=== PATIENT | female | born 1940 | race Caucasian/White ===

== ENCOUNTER → 2020-03-28 | Day surgery (SDC) | payer MEDICARE, MEDICAID ==
[~2020-03-28] MED LIST: Dextrose 5%-0.45% NaCl 1,000 ML IV SCH; Midazolam 1 MG/ML 2 ML SDV IV ONE; Midazolam 1 MG/ML 2 ML SDV ONE; Sodium Chloride 0.9% 10 ML Syringe FLUSH PRN; fentaNYL 100 MCG/2 ML SDV IV ONE; fentaNYL 100 MCG/2 ML SDV ONE
--- NOTE | 2020-03-28 08:26 | OR ---
DATE: 03/28/2020 PROCEDURE: Total colonoscopy. INSTRUMENT USED: PCF-H190DL Olympus video colonoscope. PREMEDICATIONS: Fentanyl 100 mcg intravenous, Versed 1.5 mg intravenous, nasal O2 cannula. The procedure was done under pulse oximetry, BP recording, and personnel monitor. INDICATION: The patient with rectal bleeding. Colonoscopic examination is done for detection of any polypoid lesions and removal, endoscopic hemostasis therapy if needed. DESCRIPTION OF PROCEDURE: Initial rectal exam showed external hemorrhoids. Rigid anoscopy showed small internal hemorrhoids without bleeding from them. The colonoscope was passed with ease. Few scattered diverticula were noted in the distal left colon, the colon was found to be tortuous and redundant, examination a bit prolonged. Photographs were taken of the normal-appearing cecum, identified by lipomatous ileocecal folds and appendiceal orifice. No bleeding was noted from any of the visualized areas at the commencement of the examination. Bowel preparation was found to be adequate, Pound scale 2 in all the regions, total score 6. No stricture. No vascular ectasia. No large isolated ulcerations seen. No evidence of diffuse inflammatory bowel disease in the form of friability, contact bleeding, or ulcerations. No polyp or tumor mass identified. Probing the proximal sides of folds and flexures using adequate distention and clearing up the stool material, withdrawal of the scope was made, cecum to rectum time over 6 minutes. No bleeding was noted from any of the visualized areas at the completion of examination. IMPRESSION: 1. External and internal hemorrhoids. 2. Diverticulosis. The patient tolerated the procedure well. [facility] /[id number]
[2020-03-28 10:09] VITALS: BP 142/70; PULSE 57
== END ==
LOC: DL.ENDO 06:32
PROVIDERS: ATTEND Internal Medicine Gastroenterology
DX: K57.30 Diverticulosis of large intestine without perforation or abscess without bleeding (principal); K64.4 Residual hemorrhoidal skin tags; K64.9 Unspecified hemorrhoids; E66.09 Other obesity due to excess calories; I10 Essential (primary) hypertension; E78.5 Hyperlipidemia, unspecified; E11.9 Type 2 diabetes mellitus without complications; I25.10 Atherosclerotic heart disease of native coronary artery without angina pectoris; I48.91 Unspecified atrial fibrillation; E03.9 Hypothyroidism, unspecified; Z68.41 Body mass index [BMI] 40.0-44.9, adult; Z95.5 Presence of coronary angioplasty implant and graft; Z87.19 Personal history of other diseases of the digestive system
CPT/HCPCS: 45378; J2250; J3010; J7042

== ENCOUNTER 2020-07-05 12:18 | Emergency (ER) | payer MEDICARE, MEDICAID ==
[2020-07-05] MEDS ORDERED: Sodium Chloride 0.9% 1,000 ML IV SCH (13:00)
[2020-07-05] MEDS ORDERED: Sodium Chloride 0.9% 10 ML Syringe FLUSH PRN (13:08)
[2020-07-05] MEDS ORDERED: Furosemide 40 MG/4 ML VIAL IV ONE (13:10)
[2020-07-05] MEDS ORDERED: Dexamethasone 4 MG/ML SDV IVPUSH ONE (13:10)
[2020-07-05] MEDS ORDERED: Acetaminophen 325 MG Tab PO ONE (13:10)
[2020-07-05] MEDS ORDERED: Pantoprazole 40 MG Vial IVPUSH ONE (13:15)
[2020-07-05 13:30] LABS: CHLORIDE,CL 92 mmol/L (98-107); SODIUM,NA 133 mmol/L (136-145)
--- NOTE | 2020-07-05 13:36 | CR ---
EXAMINATION: Chest 1V Frontal SEX: Female AGE: 79 years CLINICAL HISTORY: 79-year-old obese female with dyspnea. INTERPRETATION: No acute new cardiopulmonary abnormality identified since comparison PA film, 09 December 2014. 1. Cardiac silhouette accentuated by less than optimal inspiratory effort but remains within normal limits. 2. No new pulmonary vascular congestion, cephalization of flow, alveolar edema or pleural effusion. 3. No new lung mass, hilar lymphadenopathy, or focal lobar consolidation (infiltrate/atelectasis). 4. No peripheral "groundglass" interstitial lung densities. 5. No pneumothorax or pneumomediastinum. No free subdiaphragmatic air.
--- NOTE | 2020-07-05 13:50 | EDM.PDOC ---
ED HPI GENERAL MEDICAL PROBLEM - General Chief Complaint: General Stated Complaint: AMBULANCE Time Seen by Provider: 07/05/20 13:00 Source of Information: Reports: Patient, Old Records, RN, RN Notes Reviewed History Limitations: Reports: No Limitations - History of Present Illness INITIAL COMMENTS - FREE TEXT/NARRATIVE: Pt presents to ER by [facility] intercepting with [facility] with pt c/o 1 week of progressively worsening generalized weakness, chest pressure, and black stool. Pt denies fever, cough, or COVID symptoms or exposure. Hx of CHF and GI bleeds. Denies syncope, no N/V. Onset: Gradual Duration: Week(s): (1) Location: Reports: Generalized Quality: Reports: Pressure Severity: Mild Improves with: Reports: None Worsens with: Reports: None Associated Symptoms: Reports: No Other Symptoms Generalized Pain Score (Numeric/FACES): 5 - Related Data Allergies Allergy/AdvReac Type Severity Reaction Status Date / Time broccoli Allergy Rash Verified 07/05/20 12:25 calcium Allergy Cannot Verified 07/05/20 12:25 Remember fenofibrate nanocrystallized Allergy Rash Verified 07/05/20 12:25 [From Tricor] fenofibrate,micronized Allergy Rash Verified 07/05/20 12:25 [From Tricor] pravastatin Allergy Rash Verified 07/05/20 12:25 rosuvastatin calcium Allergy Rash Verified 07/05/20 12:25 [From Crestor] simvastatin Allergy Rash Verified 07/05/20 12:25 spinach Allergy Rash Verified 07/05/20 12:25 Home Meds: Home Meds Acetaminophen [Acetaminophen Extra Strength] 500 mg PO Q6HR PRN 10/19/13 [History] Docosahexaenoic Acid [DHA] 200 mg PO DAILY 10/19/13 [History] Fosinopril [Monopril] 20 mg PO BID 10/19/13 [History] Furosemide [Lasix] 40 mg PO DAILY 10/19/13 [History] Glucosam/Chondr/Collagn/Hyalur [Glucosamine & Chondroitin Cap] 1 cap PO DAILY 10/19/13 [History] Isosorbide Mononitrate [Isosorbide Mononitrate ER] 30 mg PO DAILY 10/19/13 [History] Latanoprost [Xalatan 0.005% Ophth Soln] 0.005 drop EYEBOTH DAILY 10/19/13 [History] Levothyroxine 175 mcg PO DAILY 10/19/13 [History] Lutein/Minerals/Vit A,C & E [I-Sofi] 1 each PO DAILY 10/19/13 [History] Potassium Chloride 10 meq PO DAILY 10/19/13 [History] Vitamin E 400 unit PO DAILY 10/19/13 [History] gemfibroziL [Lopid] 600 mg PO BID 10/19/13 [History] glipiZIDE [Glucotrol XL] 10 mg PO BID 10/19/13 [History] metFORMIN [Glucophage] 500 mg PO TIDM 10/19/13 [History] Omeprazole 20 mg PO DAILY 12/16/14 [History] Insulin Detemir [Levemir Flextouch] 16 units SQ BEDTIME 03/25/20 [History] Loratadine 10 mg PO DAILY 03/25/20 [History] Magnesium Oxide 500 mg PO BID 03/25/20 [History] Past Medical History HEENT History: Reports: Glaucoma, Other (See Below) Other HEENT History: UPPER AND LOWER DENTURES Cardiovascular History: Reports: Afib, CAD, High Cholesterol, Hypertension, Other (See Below) Other Cardiovascular History: Cardioversion. VALVULAR HEART DISEASE Respiratory History: Reports: None Gastrointestinal History: Reports: GERD, GI Bleed, Hemorrhoids, Helicobacter Pylori, Other (See Below) Other Gastrointestinal History: HX OF GASTRIC EROSIONS Genitourinary History: Reports: Urinary Incontinence SNOW REMOVER History: Reports: , Spontaneous Musculoskeletal History: Reports: Arthritis, Back Pain, Chronic, Neck Pain, Chronic Neurological History: Reports: None Psychiatric History: Reports: None Endocrine/Metabolic History: Reports: Diabetes, Type II, Hypothyroidism, Obesity/BMI 30+ Hematologic History: Reports: Anemia, Blood Transfusion(s), Iron Deficiency Immunologic History: Reports: None Oncologic (Cancer) History: Reports: None Dermatologic History: Reports: None - Infectious Disease History Infectious Disease History: Reports: Chicken Pox, Helicobacter Pylori, Measles, Mumps - Past Surgical History Head Surgeries/Procedures: Reports: None HEENT Surgical History: Reports: Cataract Surgery, Eye Surgery, Oral Surgery Cardiovascular Surgical History: Reports: None Respiratory Surgical History: Reports: None GI Surgical History: Reports: Colonoscopy, EGD, Other (See Below) Other GI Surgeries/Procedures: S/P ENDOSCOPIC THERAPY FOR COLONIC DIEULAFOY LESION Female Surgical History: Reports: None Endocrine Surgical History: Reports: Other (See Below) Other Endocrine Surgeries/Procedures: 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 Neurological Surgical History: Reports: None Musculoskeletal Surgical History: Reports: None Oncologic Surgical History: Reports: None Dermatological Surgical History: Reports: None Social & Family History - Family History Family Medical History: Unobtainable - Tobacco Use Tobacco Use Status *Q: Never Tobacco User - Caffeine Use Caffeine Use: Reports: Coffee, Tea Other Caffeine Use: COFFEE REGULARLY USES BOTH CAFF & DECAF - Recreational Drug Use Recreational Drug Use: No - Living Situation & Occupation Living situation: Reports: , with Family Occupation: Retired ED ROS GENERAL - Review of Systems Review Of Systems: Comprehensive ROS is negative, except as noted in HPI. ED EXAM, GENERAL - Physical Exam Exam: See Below Exam Limited By: No Limitations General Appearance: Alert, No Apparent Distress, Other (Frail elderly female, very pale appearing) Eye Exam: Bilateral Eye: EOMI, PERRL, Other (Conjunctival pallor) Ears: Normal External Exam, Hearing Grossly Normal Nose: Normal Inspection, Normal Mucosa, No Blood Throat/Mouth: Normal Lips, Normal Oropharynx, Normal Voice, No Airway Compromise, Other (Very dry oral mucosa) Head: Atraumatic, Normocephalic Neck: Normal Inspection, Supple, Non-Tender, Full Range of Motion Respiratory/Chest: No Respiratory Distress, Lungs Clear, No Accessory Muscle Use, Chest Non-Tender, Decreased Breath Sounds Cardiovascular: Regular Rate, Rhythm, No Edema GI/Abdominal: Normal Bowel Sounds, Soft, No Organomegaly, No Distention, No Abnormal Bruit, No Mass, Tender (Mild epigastric tenderness). No: Guarding, Rigid, Rebound Back Exam: Normal Inspection Extremities: Normal Range of Motion, Non-Tender Neurological: Alert, Oriented, No Motor/Sensory Deficits Psychiatric: Depressed Mood, Flat Affect Skin Exam: Warm, Dry, Intact, Pallor. No: Ecchymosis, Jaundice, Petechiae Course - Vital Signs Last Recorded V/S: Last Vital Signs Temp 96.9 F 07/05/20 14:25 Pulse 86 07/05/20 14:25 Resp 16 07/05/20 14:25 BP 95/41 L 07/05/20 14:25 Pulse Ox 99 07/05/20 14:25 - Orders/Labs/Meds Orders: Active Orders 24 hr Category Date Time Status EKG 12 Lead [EKG Documentation Completion] [RC] STAT Care 07/05/20 12:29 Active Insert Winkler Catheter [Insert Urinary Catheter] [OM.PC] Care 07/05/20 14:45 Ordered Q24H Notify Provider [RC] PRN Care 07/05/20 13:12 Active Peripheral IV Care [RC] . DIRECTED Care 07/05/20 13:10 Active Urinary Catheter Assessment [RC] ASDIRECTED Care 07/05/20 14:31 Active Verify Patient Consent Obtain [RC] ASDIRECTED Care 07/05/20 13:11 Active CULTURE BLOOD [BC] Stat Lab 07/05/20 12:45 Results CULTURE BLOOD [BC] Stat Lab 07/05/20 13:10 Ordered CULTURE URINE [RM] Stat Lab 07/05/20 14:17 Received RED BLOOD CELLS LP [BBK] Stat Lab 07/05/20 12:45 Results TYPE AND SCREEN [BBK] Stat Lab 07/05/20 12:45 Results Pantoprazole [ProTONIX IV] 40 mg Med 07/05/20 14:15 Active Sodium Chloride 0.9% [Normal Saline] 100 ml IV .CONTINUOS Sodium Chloride 0.9% [Normal Saline] 1,000 ml Med 07/05/20 13:00 Active IV ASDIRECTED Sodium Chloride 0.9% [Saline Flush] Med 07/05/20 13:08 Active 10 ml FLUSH ASDIRECTED PRN Blood Culture x2 Reflex Set [OM.PC] Stat Oth 07/05/20 13:09 Ordered Blood Transfusion Reflex Orders [OM.PC] Routine Oth 07/05/20 13:10 Ordered Peripheral IV Insertion Adult [OM.PC] Stat Oth 07/05/20 13:09 Ordered Transfuse Red Blood Cells [COMM] Stat Oth 07/05/20 13:10 Ordered Medication Orders Sodium Chloride (Normal Saline) 1,000 mls @ 999 mls/hr IV ASDIRECTED SUNNY Last Admin: 07/05/20 13:06 Dose: 999 mls/hr Documented by: ADITHYA Pantoprazole Sodium 40 mg/ (Sodium Chloride) 100 mls @ 20 mls/hr IV .CONTINUOS SUNNY Last Admin: 07/05/20 14:30 Dose: 20 mls/hr Documented by: CLIFFORD Sodium Chloride (Saline Flush) 10 ml FLUSH ASDIRECTED PRN PRN Reason: Keep Vein Open Last Admin: 07/05/20 13:42 Dose: 10 ml Documented by: CLIFFORD Labs: Laboratory Tests 07/05/20 07/05/20 07/05/20 Range/Units 12:45 12:45 12:45 WBC 8.5 (5.0-10.0) 10^3/uL RBC 1.38 L (4.2-5.4) 10^6/uL Hgb 4.0 L* D (12.0-16.0) g/dL Hct 13.1 L* (37.0-47.0) % MCV 94.9 D (80-100) fL MCH 29.0 (27.0-34.0) pg MCHC 30.5 L (33.0-35.0) g/dL Plt Count 261 (150-450) 10^3/uL Neut % (Auto) 79.5 H (42.2-75.2) % Lymph % (Auto) 5.8 L (20.5-50.1) % Wolfe % (Auto) 13.2 H (2-8) % Eos % (Auto) 0.0 L (1.0-3.0) % Baso % (Auto) 1.5 H (0.0-1.0) % PT 13.1 H (9.0-12.0) SEC INR 1.4 H (0.9-1.2) APTT 17.2 L (22.0-34.0) SEC Sodium 133 L (136-145) mmol/L Potassium 4.0 (3.5-5.1) mmol/L Chloride 92 L (98-107) mmol/L Carbon Dioxide 20 L (21-32) mmol/L Anion Gap 25.0 H (7-13) mEq/L BUN 37 H (7-18) mg/dL Creatinine 1.30 H (0.55-1.02) mg/dL Est Cr Clr Drug Dosing TNP Estimated GFR (MDRD) 40 BUN/Creatinine Ratio 28.5 (No establ ref range) Glucose 259 H (74-99) mg/dL Lactic Acid (0.4-2.0) mmol/L Calcium 8.4 L (8.5-10.1) mg/dL Total Bilirubin 0.3 (0.2-1.0) mg/dL AST 17 (15-37) U/L ALT 17 (14-59) U/L Alkaline Phosphatase 48 (46-116) U/L Troponin I < 0.017 (0.000-0.056) ng/mL B-Natriuretic Peptide 171 H (0-100) pg/ml Total Protein 6.2 L (6.4-8.2) g/dL Albumin 3.6 (3.4-5.0) g/dL Globulin 2.6 Albumin/Globulin Ratio 1.4 Amylase 98 (25-115) U/L Lipase 828 H (73-393) U/L Urine Color (YELLOW) Urine Appearance (CLEAR) Urine pH (5.0-9.0) Ur Specific [place] (1.005-1.030) Urine Protein (NEGATIVE) Urine Glucose (UA) (NEGATIVE) Urine Ketones (NEGATIVE) Urine Occult Blood (NEGATIVE) Urine Nitrite (NEGATIVE) Urine Bilirubin (NEGATIVE) Urine Urobilinogen (0.2-1.0) mg/dL Ur Leukocyte Esterase (NEGATIVE) Urine RBC /HPF Urine WBC (0-5/HPF) /HPF Ur Epithelial Cells (NOT SEEN) /HPF Amorphous Sediment (NOT SEEN) /HPF Urine Bacteria (0-FEW/HPF) /HPF Urine Mucus (NOT SEEN) /LPF Blood Type Gel Antibody Screen Crossmatch 07/05/20 07/05/20 07/05/20 Range/Units 12:45 12:45 14:17 WBC (5.0-10.0) 10^3/uL RBC (4.2-5.4) 10^6/uL Hgb (12.0-16.0) g/dL Hct (37.0-47.0) % MCV (80-100) fL MCH (27.0-34.0) pg MCHC (33.0-35.0) g/dL Plt Count (150-450) 10^3/uL Neut % (Auto) (42.2-75.2) % Lymph % (Auto) (20.5-50.1) % Wolfe % (Auto) (2-8) % Eos % (Auto) (1.0-3.0) % Baso % (Auto) (0.0-1.0) % PT (9.0-12.0) SEC INR (0.9-1.2) APTT (22.0-34.0) SEC Sodium (136-145) mmol/L Potassium (3.5-5.1) mmol/L Chloride (98-107) mmol/L Carbon Dioxide (21-32) mmol/L Anion Gap (7-13) mEq/L BUN (7-18) mg/dL Creatinine (0.55-1.02) mg/dL Est Cr Clr Drug Dosing Estimated GFR (MDRD) BUN/Creatinine Ratio (No establ ref range) Glucose (74-99) mg/dL Lactic Acid 9.1 H* (0.4-2.0) mmol/L Calcium (8.5-10.1) mg/dL Total Bilirubin (0.2-1.0) mg/dL AST (15-37) U/L ALT (14-59) U/L Alkaline Phosphatase (46-116) U/L Troponin I (0.000-0.056) ng/mL B-Natriuretic Peptide (0-100) pg/ml Total Protein (6.4-8.2) g/dL Albumin (3.4-5.0) g/dL Globulin Albumin/Globulin Ratio Amylase (25-115) U/L Lipase (73-393) U/L Urine Color Yellow (YELLOW) Urine Appearance Slightly cloudy (CLEAR) Urine pH 5.5 (5.0-9.0) Ur Specific [place] 1.020 (1.005-1.030) Urine Protein Negative (NEGATIVE) Urine Glucose (UA) Negative (NEGATIVE) Urine Ketones Negative (NEGATIVE) Urine Occult Blood Negative (NEGATIVE) Urine Nitrite Positive H (NEGATIVE) Urine Bilirubin Negative (NEGATIVE) Urine Urobilinogen 0.2 (0.2-1.0) mg/dL Ur Leukocyte Esterase Negative (NEGATIVE) Urine RBC 0-5 /HPF Urine WBC 0-5 (0-5/HPF) /HPF Ur Epithelial Cells Rare (NOT SEEN) /HPF Amorphous Sediment Rare (NOT SEEN) /HPF Urine Bacteria Many H (0-FEW/HPF) /HPF Urine Mucus Few H (NOT SEEN) /LPF Blood Type O POSITIVE Gel Antibody Screen Negative Crossmatch See Detail Meds: Medications Generic Name Dose Route Start Last Admin Trade Name Freq PRN Reason Stop Dose Admin Sodium Chloride 1,000 mls @ 999 mls/hr 07/05/20 13:00 07/05/20 13:06 Normal Saline IV 999 mls/hr ASDIRECTED SUNNY Administration Pantoprazole Sodium 40 mg/ 100 mls @ 20 mls/hr 07/05/20 14:15 07/05/20 14:30 Sodium Chloride IV 20 mls/hr .CONTINUOS SUNNY Administration Sodium Chloride 10 ml 07/05/20 13:08 07/05/20 13:42 Saline Flush FLUSH 10 ml ASDIRECTED PRN Administration Keep Vein Open Discontinued Medications Generic Name Dose Route Start Last Admin Trade Name Freq PRN Reason Stop Dose Admin Acetaminophen 650 mg 07/05/20 13:10 07/05/20 13:41 Tylenol PO 07/05/20 13:11 650 mg NOW ONE Administration Dexamethasone 4 mg 07/05/20 13:10 07/05/20 13:42 Decadron IVPUSH 07/05/20 13:11 4 mg ONETIME ONE Administration Furosemide 40 mg 07/05/20 13:10 07/05/20 13:41 Lasix IV 07/05/20 13:11 40 mg NOW ONE Administration Furosemide 20 mg 07/05/20 13:58 Lasix IVPUSH 07/05/20 13:59 NOW ONE Pantoprazole Sodium 80 mg 07/05/20 13:15 07/05/20 13:41 Protonix Iv IVPUSH 07/05/20 13:16 80 mg .BOLUS ONE Administration - Radiology Interpretation Free Text/Narrative:: CXR: no acute changes compared to prior studies per Rad. report. Departure - Departure Time of Disposition: 15:01 Disposition: DC/Tfer to Acute Hospital 02 Condition: Critical Clinical Impression: Upper GI bleed Anemia Qualifiers: Anemia type: other cause Other causes of anemia: acute posthemorrhagic Qualified Code(s): D62 - Acute posthemorrhagic anemia - Discharge Information *PRESCRIPTION DRUG MONITORING PROGRAM REVIEWED*: Not Applicable *COPY OF PRESCRIPTION DRUG MONITORING REPORT IN PATIENT ROBERT: Not Applicable Forms: ED Department Discharge, Interfacility Transfer EMTALA Sepsis Event Note (ED) - Evaluation Sepsis Screening Result: No Definite Risk - Focused Exam Vital Signs: Vital Signs Temp Temp Pulse Resp BP BP Pulse Ox 07/05/20 14:25 96.9 F 86 16 95/41 L 99 07/05/20 14:10 96.8 F L 71 16 98/49 L 100 07/05/20 14:01 96.7 F L 87 14 93/48 L 100 07/05/20 13:52 97.3 F 92 17 150/127 H 97 - My Orders Last 24 Hours: My Active Orders 07/05/20 12:29 EKG 12 Lead [EKG Documentation Completion] [RC] STAT 07/05/20 12:45 CULTURE BLOOD [BC] Stat RED BLOOD CELLS LP [BBK] Stat TYPE AND SCREEN [BBK] Stat 07/05/20 13:00 Sodium Chloride 0.9% [Normal Saline] 1,000 ml IV ASDIRECTED 07/05/20 13:08 Sodium Chloride 0.9% [Saline Flush] 10 ml FLUSH ASDIRECTED PRN 07/05/20 13:09 Blood Culture x2 Reflex Set [OM.PC] Stat Peripheral IV Insertion Adult [OM.PC] Stat 07/05/20 13:10 Peripheral IV Care [RC] . DIRECTED CULTURE BLOOD [BC] Stat Blood Transfusion Reflex Orders [OM.PC] Routine Transfuse Red Blood Cells [COMM] Stat 07/05/20 13:11 Verify Patient Consent Obtain [RC] ASDIRECTED 07/05/20 13:12 Notify Provider [RC] PRN 07/05/20 14:15 Pantoprazole [ProTONIX IV] 40 mg Sodium Chloride 0.9% [Normal Saline] 100 ml IV .CONTINUOS 07/05/20 14:17 CULTURE URINE [RM] Stat 07/05/20 14:31 Urinary Catheter Assessment [RC] ASDIRECTED 07/05/20 14:45 Insert Winkler Catheter [Insert Urinary Catheter] [OM.PC] Q24H - Assessment/Plan Last 24 Hours: My Active Orders 07/05/20 12:29 EKG 12 Lead [EKG Documentation Completion] [RC] STAT 07/05/20 12:45 CULTURE BLOOD [BC] Stat RED BLOOD CELLS LP [BBK] Stat TYPE AND SCREEN [BBK] Stat 07/05/20 13:00 Sodium Chloride 0.9% [Normal Saline] 1,000 ml IV ASDIRECTED 07/05/20 13:08 Sodium Chloride 0.9% [Saline Flush] 10 ml FLUSH ASDIRECTED PRN 07/05/20 13:09 Blood Culture x2 Reflex Set [OM.PC] Stat Peripheral IV Insertion Adult [OM.PC] Stat 07/05/20 13:10 Peripheral IV Care [RC] . DIRECTED CULTURE BLOOD [BC] Stat Blood Transfusion Reflex Orders [OM.PC] Routine Transfuse Red Blood Cells [COMM] Stat 07/05/20 13:11 Verify Patient Consent Obtain [RC] ASDIRECTED 07/05/20 13:12 Notify Provider [RC] PRN 07/05/20 14:15 Pantoprazole [ProTONIX IV] 40 mg Sodium Chloride 0.9% [Normal Saline] 100 ml IV .CONTINUOS 07/05/20 14:17 CULTURE URINE [RM] Stat 07/05/20 14:31 Urinary Catheter Assessment [RC] ASDIRECTED 07/05/20 14:45 Insert Winkler Catheter [Insert Urinary Catheter] [OM.PC] Q24H
[2020-07-05 13:54] LABS: PTT,PARTIAL THROMBOPLSTIN TIME 17.2 SEC (22.0-34.0)
[2020-07-05] MEDS ORDERED: Furosemide 40 MG/4 ML VIAL IVPUSH ONE (13:58)
[2020-07-05] MEDS ORDERED: Pantoprazole 40 MG in Sodium Chloride 0.9% 100 ML IV SCH (14:15)
[2020-07-05 15:39] VITALS: BP 99/51; PULSE 78
== END 2020-07-05 15:50 ==
LOC: DL.ED 12:18
DX: K92.2 Gastrointestinal hemorrhage, unspecified (principal); D62 Acute posthemorrhagic anemia; R23.1 Pallor; I48.91 Unspecified atrial fibrillation; I25.10 Atherosclerotic heart disease of native coronary artery without angina pectoris; I10 Essential (primary) hypertension; E11.9 Type 2 diabetes mellitus without complications; E03.9 Hypothyroidism, unspecified; E66.9 Obesity, unspecified; Z68.41 Body mass index [BMI] 40.0-44.9, adult; Z91.018 Allergy to other foods; Z88.8 Allergy status to other drugs, medicaments and biological substances; Z79.4 Long term (current) use of insulin; Z79.899 Other long term (current) drug therapy
CPT/HCPCS: 36415; 36430; 51702; 71045; 80053; 81001; 82150; 82272; 83605; 83690; 83880; 84484; 85025; 85610; 85730; 86850; 86900; 86901; 86920; 86922; 87040; 87086; 87088; 87186; 93005; 96365; 96375; 96376; 99284; 99285-25; A9270-GY; C9113; J1100; J1940; J7030; P9016

== ENCOUNTER 2021-01-07 15:13 | Emergency (ER) | payer MEDICARE, MEDICAID ==
[2021-01-07 15:51] VITALS: BP 114/52; PULSE 81
--- NOTE | 2021-01-07 17:40 | EDM.PDOC ---
ED HPI GENERAL MEDICAL PROBLEM - General Chief Complaint: General Stated Complaint: COUPLE OF SHORT SEIZURES Time Seen by Provider: 01/07/21 17:00 Source of Information: Reports: Patient, Family (Daughter), RN, RN Notes Reviewed History Limitations: Reports: No Limitations - History of Present Illness INITIAL COMMENTS - FREE TEXT/NARRATIVE: Aneta is an 80 y/o female who presents to the ED via personal vehicle with complaints of syncopal events. The patient reports she was at a local park for several hours in the sun with her family today when she experienced two episodes of pre-syncope. She notes she was sitting at the picnic table eating during these events and did not completely lose consciousness. Her field of vision became dark, but she was still able to talk; she remembers both events in entirety. She denies recent illness, fever, shaking chills, dizziness, current vision changes, chest pain, palpitations, shortness of breath, abdominal pain, nausea, vomiting, dysuria, hematuria, constipation, or diarrhea. She has had no falls or recent trauma. She has taken all of her medications, per normal routine. - Related Data Allergies Allergy/AdvReac Type Severity Reaction Status Date / Time broccoli Allergy Rash Verified 01/07/21 15:33 calcium Allergy Cannot Verified 01/07/21 15:33 Remember fenofibrate nanocrystallized Allergy Rash Verified 01/07/21 15:33 [From Tricor] fenofibrate,micronized Allergy Rash Verified 01/07/21 15:33 [From Tricor] Penicillins Allergy Airway Verified 01/07/21 15:34 Tightness pravastatin Allergy Rash Verified 01/07/21 15:33 rosuvastatin calcium Allergy Rash Verified 01/07/21 15:33 [From Crestor] simvastatin Allergy Rash Verified 01/07/21 15:33 spinach Allergy Rash Verified 01/07/21 15:33 Home Meds: Home Meds Acetaminophen [Acetaminophen Extra Strength] 500 mg PO Q6HR PRN 10/19/13 [Histor y] Docosahexaenoic Acid [DHA] 200 mg PO DAILY 10/19/13 [History] Fosinopril [Monopril] 20 mg PO BID 10/19/13 [History] Furosemide [Lasix] 40 mg PO DAILY 10/19/13 [History] Glucosam/Chondr/Collagn/Hyalur [Glucosamine & Chondroitin Cap] 1 cap PO DAILY 10/19/13 [History] Isosorbide Mononitrate [Isosorbide Mononitrate ER] 30 mg PO DAILY 10/19/13 [History] Latanoprost [Xalatan 0.005% Ophth Soln] 0.005 drop EYEBOTH DAILY 10/19/13 [History] Levothyroxine 175 mcg PO DAILY 10/19/13 [History] Lutein/Minerals/Vit A,C & E [I-Sofi] 1 each PO DAILY 10/19/13 [History] Potassium Chloride 10 meq PO DAILY 10/19/13 [History] Vitamin E 400 unit PO DAILY 10/19/13 [History] gemfibroziL [Lopid] 600 mg PO BID 10/19/13 [History] glipiZIDE [Glucotrol XL] 10 mg PO BID 10/19/13 [History] metFORMIN [Glucophage] 500 mg PO TIDM 10/19/13 [History] Omeprazole 20 mg PO DAILY 12/16/14 [History] Insulin Detemir [Levemir Flextouch] 16 units SQ BEDTIME 03/25/20 [History] Loratadine 10 mg PO DAILY 03/25/20 [History] Magnesium Oxide 500 mg PO BID 03/25/20 [History] Past Medical History HEENT History: Reports: Glaucoma, Other (See Below) Other HEENT History: UPPER AND LOWER DENTURES Cardiovascular History: Reports: Afib, CAD, High Cholesterol, Hypertension, Other (See Below) Other Cardiovascular History: Cardioversion. VALVULAR HEART DISEASE Respiratory History: Reports: None Gastrointestinal History: Reports: GERD, GI Bleed, Hemorrhoids, Helicobacter Pylori, Other (See Below) Other Gastrointestinal History: HX OF GASTRIC EROSIONS Genitourinary History: Reports: Urinary Incontinence CERTIFIED MEDICAL ASST History: Reports: , Spontaneous Musculoskeletal History: Reports: Arthritis, Back Pain, Chronic, Neck Pain, Chronic Neurological History: Reports: None Psychiatric History: Reports: None Endocrine/Metabolic History: Reports: Diabetes, Type II, Hypothyroidism, Obe sity/BMI 30+ Hematologic History: Reports: Anemia, Blood Transfusion(s), Iron Deficiency Immunologic History: Reports: None Oncologic (Cancer) History: Reports: None Dermatologic History: Reports: None - Infectious Disease History Infectious Disease History: Reports: Chicken Pox, Helicobacter Pylori, Measles, Mumps - Past Surgical History Head Surgeries/Procedures: Reports: None HEENT Surgical History: Reports: Cataract Surgery, Eye Surgery, Oral Surgery Cardiovascular Surgical History: Reports: None Respiratory Surgical History: Reports: None GI Surgical History: Reports: Colonoscopy, EGD, Other (See Below) Other GI Surgeries/Procedures: S/P ENDOSCOPIC THERAPY FOR COLONIC DIEULAFOY LESION Female Surgical History: Reports: None Endocrine Surgical History: Reports: Other (See Below) Other Endocrine Surgeries/Procedures: 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 Neurological Surgical History: Reports: None Musculoskeletal Surgical History: Reports: None Oncologic Surgical History: Reports: None Dermatological Surgical History: Reports: None Social & Family History - Family History Family Medical History: Unobtainable - Tobacco Use Tobacco Use Status *Q: Former Tobacco User Used Tobacco, but Quit: Yes Month/Year Tobacco Last Used: unk - Caffeine Use Caffeine Use: Reports: Coffee Other Caffeine Use: COFFEE REGULARLY USES BOTH CAFF & DECAF - Recreational Drug Use Recreational Drug Use: No - Living Situation & Occupation Living situation: Reports: , with Family Occupation: Retired ED ROS GENERAL - Review of Systems Review Of Systems: Comprehensive ROS is negative, except as noted in HPI. ED EXAM, GENERAL - Physical Exam Exam: See Below Exam Limited By: No Limitations General Appearance: Alert, No Apparent Distress Eye Exam: Bilateral Eye: EOMI, Normal Inspection, PERRL (3mm) Ears: Normal External Exam, Normal Canal, Hearing Grossly Normal, Normal TMs Ear Exam: Bilateral Ear: Auricle Normal, Canal Normal, TM normal Nose: Normal Inspection, Normal Mucosa, No Blood Throat/Mouth: Normal Inspection, Normal Lips, Normal Teeth, Normal Gums, Normal Oropharynx, Normal Voice, No Airway Compromise Head: Atraumatic, Normocephalic Neck: Normal Inspection, Supple, Non-Tender, Full Range of Motion Respiratory/Chest: No Respiratory Distress, Lungs Clear, Normal Breath Sounds, No Accessory Muscle Use, Chest Non-Tender Cardiovascular: Normal Peripheral Pulses, Regular Rate, Rhythm, No Gallop, No JVD, No Murmur, No Rub. No: No Edema Peripheral Pulses: 2+: Radial (L), Radial (R) GI/Abdominal: Normal Bowel Sounds, Soft, Non-Tender, No Organomegaly, No Distention, No Abnormal Bruit, No Mass, Pelvis Stable (Female) Exam: Deferred Rectal (Female) Exam: Deferred Back Exam: Normal Inspection, Full Range of Motion Extremities: Normal Range of Motion, Normal Capillary Refill, Pedal Edema (+1 pitting, bilaterally; Patient states normal amount of swelling). No: Increased Warmth, Mottled, Pallor, Redness Neurological: Alert, Oriented, CN II-XII Intact, Normal Cognition, Normal Gait, Normal Reflexes, No Motor/Sensory Deficits Psychiatric: Normal Affect, Normal Mood Skin Exam: Warm, Dry, Intact, Normal Color, No Rash. No: Cyanosis, Jaundice, Mottled, Pallor #1 Interpretation EKG Date: 01/07/21 Time: 17:27 Rhythm: A-Fib Rate (Beats/Min): 65 [place]: LAD-Left [place] Deviation P-Wave: Absent QRS: RBBB ST-T: Normal QT: Prolonged (.499) Comparison: Change From Previous EKG (No LAFB today; Slightly prolonged QT) EKG Interpretation Comments: AFib with RBBB; No evidence of acute myocardial ischemia Course - Vital Signs Last Recorded V/S: Last Vital Signs Temp 96.5 F L 01/07/21 16:29 Pulse 81 01/07/21 15:50 Resp 20 01/07/21 15:50 BP 114/52 L 01/07/21 15:50 Pulse Ox 96 01/07/21 15:50 - Orders/Labs/Meds Labs: Laboratory Tests 01/07/21 01/07/21 01/07/21 Range/Units 15:43 17:27 17:27 WBC 7.4 (5.0-10.0) 10^3/uL RBC 4.16 L (4.2-5.4) 10^6/uL Hgb 12.3 D (12.0-16.0) g/dL Hct 37.6 (37.0-47.0) % MCV 90.4 D (80-100) fL MCH 29.6 (27.0-34.0) pg MCHC 32.7 L (33.0-35.0) g/dL Plt Count 222 (150-450) 10^3/uL Neut % (Auto) (42.2-75.2) % Add Manual Diff Yes Neutrophils % (Manual) 54 (42-75) % Lymphocytes % (Manual) 23 (20-50) % Monocytes % (Manual) 19 H (2-8) % Eosinophils % (Manual) 4 H (1-3) % PT (9.0-12.0) SEC INR (0.9-1.2) APTT (22.0-34.0) SEC Sodium 135 L (136-145) mmol/L Potassium 4.9 (3.5-5.1) mmol/L Chloride 97 L (98-107) mmol/L Carbon Dioxide 26 (21-32) mmol/L Anion Gap 16.9 H (7-13) mEq/L BUN 18 (7-18) mg/dL Creatinine 0.74 (0.55-1.02) mg/dL Est Cr Clr Drug Dosing 47.96 mL/min Estimated GFR (MDRD) > 60 BUN/Creatinine Ratio 24.3 (No establ ref range) Glucose 177 H (70-99) mg/dL POC Glucose 161 H (70-99) mg/dL Lactic Acid (0.4-2.0) mmol/L Calcium 9.5 (8.5-10.1) mg/dL Magnesium 2.1 (1.8-2.4) mg/dL Total Bilirubin 0.3 (0.2-1.0) mg/dL AST 24 (15-37) U/L ALT 19 (14-59) U/L Alkaline Phosphatase 92 (46-116) U/L Troponin I High Sens 22 (<=51) pg/mL C-Reactive Protein 0.7 (0.0-0.9) mg/dL B-Natriuretic Peptide 140 H (0-100) pg/ml Total Protein 8.1 (6.4-8.2) g/dL Albumin 4.2 (3.4-5.0) g/dL Globulin 3.9 Albumin/Globulin Ratio 1.1 Urine Color (YELLOW) Urine Appearance (CLEAR) Urine pH (5.0-9.0) Ur Specific [place] (1.005-1.030) Urine Protein (NEGATIVE) Urine Glucose (UA) (NEGATIVE) Urine Ketones (NEGATIVE) Urine Occult Blood (NEGATIVE) Urine Nitrite (NEGATIVE) Urine Bilirubin (NEGATIVE) Urine Urobilinogen (0.2-1.0) mg/dL Ur Leukocyte Esterase (NEGATIVE) Urine RBC /HPF Urine WBC (0-5/HPF) /HPF Ur Epithelial Cells (NOT SEEN) /HPF Urine Bacteria (0-FEW/HPF) /HPF Urine Opiates Screen (NEGATIVE) Ur Oxycodone Screen (NEGATIVE) Urine Methadone Screen (NEGATIVE) Ur Barbiturates Screen (NEGATIVE) U Tricyclic Antidepress (NEGATIVE) Ur Phencyclidine Scrn (NEGATIVE) Ur Amphetamine Screen (NEGATIVE) U Methamphetamines Scrn (NEGATIVE) Urine MDMA Screen (NEGATIVE) U Benzodiazepines Scrn (NEGATIVE) Urine Cocaine Screen (NEGATIVE) U Marijuana (THC) Screen (NEGATIVE) Ethyl Alcohol < 3 (0) mg/dL 01/07/21 01/07/21 01/07/21 Range/Units 17:27 17:27 18:36 WBC (5.0-10.0) 10^3/uL RBC (4.2-5.4) 10^6/uL Hgb (12.0-16.0) g/dL Hct (37.0-47.0) % MCV (80-100) fL MCH (27.0-34.0) pg MCHC (33.0-35.0) g/dL Plt Count (150-450) 10^3/uL Neut % (Auto) (42.2-75.2) % Add Manual Diff Neutrophils % (Manual) (42-75) % Lymphocytes % (Manual) (20-50) % Monocytes % (Manual) (2-8) % Eosinophils % (Manual) (1-3) % PT 11.1 (9.0-12.0) SEC INR 1.1 (0.9-1.2) APTT 27.2 (22.0-34.0) SEC Sodium (136-145) mmol/L Potassium (3.5-5.1) mmol/L Chloride (98-107) mmol/L Carbon Dioxide (21-32) mmol/L Anion Gap (7-13) mEq/L BUN (7-18) mg/dL Creatinine (0.55-1.02) mg/dL Est Cr Clr Drug Dosing mL/min Estimated GFR (MDRD) BUN/Creatinine Ratio (No establ ref range) Glucose (70-99) mg/dL POC Glucose (70-99) mg/dL Lactic Acid 1.6 (0.4-2.0) mmol/L Calcium (8.5-10.1) mg/dL Magnesium (1.8-2.4) mg/dL Total Bilirubin (0.2-1.0) mg/dL AST (15-37) U/L ALT (14-59) U/L Alkaline Phosphatase (46-116) U/L Troponin I High Sens (<=51) pg/mL C-Reactive Protein (0.0-0.9) mg/dL B-Natriuretic Peptide (0-100) pg/ml Total Protein (6.4-8.2) g/dL Albumin (3.4-5.0) g/dL Globulin Albumin/Globulin Ratio Urine Color Yellow (YELLOW) Urine Appearance Slightly cloudy (CLEAR) Urine pH 5.5 (5.0-9.0) Ur Specific [place] >= 1.030 (1.005-1.030) Urine Protein Negative (NEGATIVE) Urine Glucose (UA) Negative (NEGATIVE) Urine Ketones Negative (NEGATIVE) Urine Occult Blood Trace-intact H (NEGATIVE) Urine Nitrite Positive H (NEGATIVE) Urine Bilirubin Negative (NEGATIVE) Urine Urobilinogen 0.2 (0.2-1.0) mg/dL Ur Leukocyte Esterase Small H (NEGATIVE) Urine RBC Not seen /HPF Urine WBC 30-40 H (0-5/HPF) /HPF Ur Epithelial Cells Moderate H (NOT SEEN) /HPF Urine Bacteria Many H (0-FEW/HPF) /HPF Urine Opiates Screen (NEGATIVE) Ur Oxycodone Screen (NEGATIVE) Urine Methadone Screen (NEGATIVE) Ur Barbiturates Screen (NEGATIVE) U Tricyclic Antidepress (NEGATIVE) Ur Phencyclidine Scrn (NEGATIVE) Ur Amphetamine Screen (NEGATIVE) U Methamphetamines Scrn (NEGATIVE) Urine MDMA Screen (NEGATIVE) U Benzodiazepines Scrn (NEGATIVE) Urine Cocaine Screen (NEGATIVE) U Marijuana (THC) Screen (NEGATIVE) Ethyl Alcohol (0) mg/dL 01/07/21 Range/Units 18:36 WBC (5.0-10.0) 10^3/uL RBC (4.2-5.4) 10^6/uL Hgb (12.0-16.0) g/dL Hct (37.0-47.0) % MCV (80-100) fL MCH (27.0-34.0) pg MCHC (33.0-35.0) g/dL Plt Count (150-450) 10^3/uL Neut % (Auto) (42.2-75.2) % Add Manual Diff Neutrophils % (Manual) (42-75) % Lymphocytes % (Manual) (20-50) % Monocytes % (Manual) (2-8) % Eosinophils % (Manual) (1-3) % PT (9.0-12.0) SEC INR (0.9-1.2) APTT (22.0-34.0) SEC Sodium (136-145) mmol/L Potassium (3.5-5.1) mmol/L Chloride (98-107) mmol/L Carbon Dioxide (21-32) mmol/L Anion Gap (7-13) mEq/L BUN (7-18) mg/dL Creatinine (0.55-1.02) mg/dL Est Cr Clr Drug Dosing mL/min Estimated GFR (MDRD) BUN/Creatinine Ratio (No establ ref range) Glucose (70-99) mg/dL POC Glucose (70-99) mg/dL Lactic Acid (0.4-2.0) mmol/L Calcium (8.5-10.1) mg/dL Magnesium (1.8-2.4) mg/dL Total Bilirubin (0.2-1.0) mg/dL AST (15-37) U/L ALT (14-59) U/L Alkaline Phosphatase (46-116) U/L Troponin I High Sens (<=51) pg/mL C-Reactive Protein (0.0-0.9) mg/dL B-Natriuretic Peptide (0-100) pg/ml Total Protein (6.4-8.2) g/dL Albumin (3.4-5.0) g/dL Globulin Albumin/Globulin Ratio Urine Color (YELLOW) Urine Appearance (CLEAR) Urine pH (5.0-9.0) Ur Specific [place] (1.005-1.030) Urine Protein (NEGATIVE) Urine Glucose (UA) (NEGATIVE) Urine Ketones (NEGATIVE) Urine Occult Blood (NEGATIVE) Urine Nitrite (NEGATIVE) Urine Bilirubin (NEGATIVE) Urine Urobilinogen (0.2-1.0) mg/dL Ur Leukocyte Esterase (NEGATIVE) Urine RBC /HPF Urine WBC (0-5/HPF) /HPF Ur Epithelial Cells (NOT SEEN) /HPF Urine Bacteria (0-FEW/HPF) /HPF Urine Opiates Screen Negative (NEGATIVE) Ur Oxycodone Screen Negative (NEGATIVE) Urine Methadone Screen Negative (NEGATIVE) Ur Barbiturates Screen Negative (NEGATIVE) U Tricyclic Antidepress Negative (NEGATIVE) Ur Phencyclidine Scrn Negative (NEGATIVE) Ur Amphetamine Screen Negative (NEGATIVE) U Methamphetamines Scrn Negative (NEGATIVE) Urine MDMA Screen Negative (NEGATIVE) U Benzodiazepines Scrn Negative (NEGATIVE) Urine Cocaine Screen Negative (NEGATIVE) U Marijuana (THC) Screen Negative (NEGATIVE) Ethyl Alcohol (0) mg/dL Meds: Medications Discontinued Medications Generic Name Dose Route Start Last Admin Trade Name [place] PRN Reason Stop Dose Admin Ciprofloxacin 500 mg 01/07/21 18:56 01/07/21 19:05 Ciprofloxacin 500 Mg Tab PO 01/07/21 18:57 500 mg ONETIME ONE Administration - Re-Assessments/Exams Free Text/Narrative Re-Assessment/Exam: 01/07/21 Patient's daughter eager to leave and attempted to encourage patient to leave AMA. Patient's daughter removed IV from patient while labs pending. Findings of examination and lab work reviewed with patient and daughter. Will treat UTI with ciprofloxacin. Discussed supportive cares for UTI. Patient instructed to follow up with primary care provider regarding today's visit. Red flag signs and symptoms which would warrant reevaluation reviewed. Patient verbalized understanding and agreement with the plan of care. Departure - Departure Time of Disposition: 18:53 Disposition: Home, Self-Care 01 Condition: Good Clinical Impression: Acute cystitis Qualifiers: Hematuria presence: without hematuria Qualified Code(s): N30.00 - Acute cystitis without hematuria - Discharge Information *PRESCRIPTION DRUG MONITORING PROGRAM REVIEWED*: Not Applicable *COPY OF PRESCRIPTION DRUG MONITORING REPORT IN PATIENT ROBERT: Not Applicable Forms: ED Department Discharge Additional Instructions: Rx: Ciprofloxacin 1.) Take all of your antibiotic until gone, even as symptoms improve. 2.) Drink plenty of water to keep bladder and kidneys flushed out. 3.) Follow up with primary care provider, or return to the emergency department, with fever, shaking chills, or worsening symptoms. Sepsis Event Note (ED) - Evaluation Sepsis Screening Result: No Definite Risk
[2021-01-07 17:56] LABS: ANION GAP 16.9 mEq/L (7-13); CHLORIDE,CL 97 mmol/L (98-107); SODIUM,NA 135 mmol/L (136-145)
[2021-01-07 17:59] LABS: PTT,PARTIAL THROMBOPLSTIN TIME 27.2 SEC (22.0-34.0)
[2021-01-07] MEDS ORDERED: Ciprofloxacin 500 MG Tab PO ONE (18:56)
== END 2021-01-07 19:10 | disposition home or self-care (01) ==
LOC: DL.ED 15:13
DX: N30.00 Acute cystitis without hematuria (principal); I45.10 Unspecified right bundle-branch block; I48.91 Unspecified atrial fibrillation; I25.10 Atherosclerotic heart disease of native coronary artery without angina pectoris; I10 Essential (primary) hypertension; K21.9 Gastro-esophageal reflux disease without esophagitis; M19.90 Unspecified osteoarthritis, unspecified site; E11.9 Type 2 diabetes mellitus without complications; E03.9 Hypothyroidism, unspecified; E66.9 Obesity, unspecified; Z87.891 Personal history of nicotine dependence; Z91.018 Allergy to other foods; Z88.8 Allergy status to other drugs, medicaments and biological substances; Z88.0 Allergy status to penicillin; Z79.4 Long term (current) use of insulin; Z79.899 Other long term (current) drug therapy
CPT/HCPCS: 36415; 80053; 80305; 80307; 81001; 82947; 83605; 83735; 83880; 84484; 85025; 85610; 85730; 86140; 87086; 87088; 87186; 93005; 99284; A9270

== ENCOUNTER 2021-06-06 22:03 | Emergency (ER) | payer MEDICARE, MEDICAID ==
[2021-06-06 23:27] LABS: ANION GAP 14.3 mEq/L (7-13); CHLORIDE,CL 90 mmol/L (98-107); SODIUM,NA 125 mmol/L (136-145)
--- NOTE | 2021-06-07 00:23 | EDM.PDOC ---
ED HPI GENERAL MEDICAL PROBLEM - General Chief Complaint: Syncope Stated Complaint: AMBULANCE Time Seen by Provider: 06/06/21 22:10 Source of Information: Reports: Patient, RN History Limitations: Reports: No Limitations - History of Present Illness INITIAL COMMENTS - FREE TEXT/NARRATIVE: ED via check EMS. Report of syncopal episode at home, has had cough. Denied fever, Denied chest pain. Admits weight gain and lower extremity swelling, has not seen PCP for follow up in at least 3 months. Patient denies knowledge of any hx of atrial fibrillation but reports slow heart rate since childhood. - Related Data Allergies Allergy/AdvReac Type Severity Reaction Status Date / Time broccoli Allergy Rash Verified 06/06/21 22:10 calcium Allergy Cannot Verified 06/06/21 22:10 Remember fenofibrate nanocrystallized Allergy Rash Verified 06/06/21 22:10 [From Tricor] fenofibrate,micronized Allergy Rash Verified 06/06/21 22:10 [From Tricor] Penicillins Allergy Airway Verified 06/06/21 22:10 Tightness pravastatin Allergy Rash Verified 06/06/21 22:10 rosuvastatin calcium Allergy Rash Verified 06/06/21 22:10 [From Crestor] simvastatin Allergy Rash Verified 06/06/21 22:10 spinach Allergy Rash Verified 06/06/21 22:10 Home Meds: Home Meds Acetaminophen [Acetaminophen Extra Strength] 500 mg PO Q6HR PRN 10/19/13 [History] Docosahexaenoic Acid [DHA] 200 mg PO DAILY 10/19/13 [History] Fosinopril [Monopril] 20 mg PO BID 10/19/13 [History] Furosemide [Lasix] 40 mg PO DAILY 10/19/13 [History] Glucosam/Chondr/Collagn/Hyalur [Glucosamine & Chondroitin Cap] 1 cap PO DAILY 10/19/13 [History] Isosorbide Mononitrate [Isosorbide Mononitrate ER] 30 mg PO DAILY 10/19/13 [History] Latanoprost [Xalatan 0.005% Ophth Soln] 0.005 drop EYEBOTH DAILY 10/19/13 [History] Levothyroxine 175 mcg PO DAILY 10/19/13 [History] Lutein/Minerals/Vit A,C & E [I-Sofi] 1 each PO DAILY 10/19/13 [History] Potassium Chloride 10 meq PO DAILY 10/19/13 [History] Vitamin E 400 unit PO DAILY 10/19/13 [History] gemfibroziL [Lopid] 600 mg PO BID 10/19/13 [History] glipiZIDE [Glucotrol XL] 10 mg PO BID 10/19/13 [History] metFORMIN [Glucophage] 500 mg PO TIDM 10/19/13 [History] Omeprazole 20 mg PO DAILY 12/16/14 [History] Insulin Detemir [Levemir Flextouch] 16 units SQ BEDTIME 03/25/20 [History] Loratadine 10 mg PO DAILY 03/25/20 [History] Magnesium Oxide 500 mg PO BID 03/25/20 [History] Past Medical History HEENT History: Reports: Glaucoma, Other (See Below) Other HEENT History: UPPER AND LOWER DENTURES Cardiovascular History: Reports: Afib, CAD, High Cholesterol, Hypertension, Oth er (See Below) Other Cardiovascular History: Cardioversion. VALVULAR HEART DISEASE Respiratory History: Reports: None Gastrointestinal History: Reports: GERD, GI Bleed, Hemorrhoids, Helicobacter Pylori, Other (See Below) Other Gastrointestinal History: HX OF GASTRIC EROSIONS Genitourinary History: Reports: Urinary Incontinence [employer] History: Reports: , Spontaneous Musculoskeletal History: Reports: Arthritis, Back Pain, Chronic, Neck Pain, Chronic Neurological History: Reports: None Psychiatric History: Reports: None Endocrine/Metabolic History: Reports: Diabetes, Type II, Hypothyroidism, Obesity/BMI 30+ Hematologic History: Reports: Anemia, Blood Transfusion(s), Iron Deficiency Immunologic History: Reports: None Oncologic (Cancer) History: Reports: None Dermatologic History: Reports: None - Infectious Disease History Infectious Disease History: Reports: Chicken Pox, Helicobacter Pylori, Measles, Mumps - Past Surgical History Head Surgeries/Procedures: Reports: None HEENT Surgical History: Reports: Cataract Surgery, Eye Surgery, Oral Surgery Cardiovascular Surgical History: Reports: None Respiratory Surgical History: Reports: None GI Surgical History: Reports: Colonoscopy, EGD, Other (See Below) Other GI Surgeries/Procedures: S/P ENDOSCOPIC THERAPY FOR COLONIC DIEULAFOY LESION Female Surgical History: Reports: None Endocrine Surgical History: Reports: Other (See Below) Other Endocrine Surgeries/Procedures: 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 Neurological Surgical History: Reports: None Musculoskeletal Surgical History: Reports: None Oncologic Surgical History: Reports: None Dermatological Surgical History: Reports: None Social & Family History - Family History Family Medical History: Unobtainable - Tobacco Use Tobacco Use Status *Q: Never Tobacco User - Caffeine Use Caffeine Use: Reports: Coffee Other Caffeine Use: COFFEE REGULARLY USES BOTH CAFF & DECAF - Recreational Drug Use Recreational Drug Use: No - Living Situation & Occupation Living situation: Reports: , with Family Occupation: Retired ED ROS GENERAL - Review of Systems Review Of Systems: Comprehensive ROS is negative, except as noted in HPI. - Physical Exam Exam: See Below Exam Limited By: No Limitations General Appearance: Alert, No Apparent Distress, Obese Eye Exam: Bilateral Eye: EOMI, PERRL Ears: Normal External Exam, Normal TMs Nose: Normal Inspection Throat/Mouth: Normal Inspection, No Airway Compromise. No: Evidence of Tongue Biting Head Exam: Atraumatic, Normocephalic Neck: Normal Inspection Respiratory/Chest: No Respiratory Distress, Crackles (bases). No: Rhonchi, Wheezing, Stridor Cardiovascular: Normal Peripheral Pulses, Irregularly Irregular. No: No Edema (3+), Bradycardia, Tachycardia GI/Abdominal: Normal Bowel Sounds, Soft, Non-Tender Neuro Exam (Abbreviated): Alert, Oriented, Normal Cognition, Normal Gait (tx with assist). No: Slow to Respond, Unresponsive, Memory Loss Remote Events Extremities: Pedal Edema. No: Redness Psychiatric: Normal Affect, Normal Mood Skin Exam: Warm, Dry, Intact #1 Interpretation EKG Date: 06/06/21 Time: 21:45 Rhythm: A-Fib Rate (Beats/Min): 75 QRS: RBBB ST-T: Normal Comparison: Change From Previous EKG EKG Interpretation Comments: Recent onset a-b rate controlled Course - Vital Signs Last Recorded V/S: Last Vital Signs Temp 97.5 F 06/07/21 01:30 Pulse 68 06/07/21 01:30 Resp 18 06/07/21 01:30 BP 134/65 06/07/21 01:30 Pulse Ox 93 L 06/07/21 01:30 - Orders/Labs/Meds Labs: Laboratory Tests 06/06/21 06/06/21 06/06/21 Range/Units 22:55 22:55 22:55 WBC 9.6 (5.0-10.0) 10^3/uL RBC 3.63 L (4.2-5.4) 10^6/uL Hgb 10.6 L D (12.0-16.0) g/dL Hct 33.3 L (37.0-47.0) % MCV 91.7 (80-100) fL MCH 29.2 (27.0-34.0) pg MCHC 31.8 L (33.0-35.0) g/dL Plt Count 209 (150-450) 10^3/uL Neut % (Auto) 68.8 (42.2-75.2) % Lymph % (Auto) 10.3 L (20.5-50.1) % Brewster % (Auto) 18.5 H (2-8) % Eos % (Auto) 0.7 L (1.0-3.0) % Baso % (Auto) 1.7 H (0.0-1.0) % Add Manual Diff Yes Neutrophils % (Manual) 75 (42-75) % Lymphocytes % (Manual) 8 L (20-50) % Monocytes % (Manual) 17 H (2-8) % PT 12.0 (9.0-12.0) SEC INR 1.2 (0.9-1.2) Sodium 125 L D (136-145) mmol/L Potassium 5.3 H (3.5-5.1) mmol/L Chloride 90 L (98-107) mmol/L Carbon Dioxide 26 (21-32) mmol/L Anion Gap 14.3 H (7-13) mEq/L BUN 11 (7-18) mg/dL Creatinine 0.72 (0.55-1.02) mg/dL Est Cr Clr Drug Dosing TNP Estimated GFR (MDRD) > 60 BUN/Creatinine Ratio 15.3 (No establ ref range) Glucose 206 H (70-99) mg/dL Calcium 9.1 (8.5-10.1) mg/dL Total Bilirubin 0.3 (0.2-1.0) mg/dL AST 18 (15-37) U/L ALT 18 (14-59) U/L Alkaline Phosphatase 85 (46-116) U/L Troponin I High Sens 19 (<=51) pg/mL B-Natriuretic Peptide 115 H (0-100) pg/ml Total Protein 7.5 (6.4-8.2) g/dL Albumin 3.8 (3.4-5.0) g/dL Globulin 3.7 Albumin/Globulin Ratio 1.0 SARS-CoV-2 RNA (JAN) (NEGATIVE) 06/07/21 Range/Units 00:01 WBC (5.0-10.0) 10^3/uL RBC (4.2-5.4) 10^6/uL Hgb (12.0-16.0) g/dL Hct (37.0-47.0) % MCV (80-100) fL MCH (27.0-34.0) pg MCHC (33.0-35.0) g/dL Plt Count (150-450) 10^3/uL Neut % (Auto) (42.2-75.2) % Lymph % (Auto) (20.5-50.1) % Brewster % (Auto) (2-8) % Eos % (Auto) (1.0-3.0) % Baso % (Auto) (0.0-1.0) % Add Manual Diff Neutrophils % (Manual) (42-75) % Lymphocytes % (Manual) (20-50) % Monocytes % (Manual) (2-8) % PT (9.0-12.0) SEC INR (0.9-1.2) Sodium (136-145) mmol/L Potassium (3.5-5.1) mmol/L Chloride (98-107) mmol/L Carbon Dioxide (21-32) mmol/L Anion Gap (7-13) mEq/L BUN (7-18) mg/dL Creatinine (0.55-1.02) mg/dL Est Cr Clr Drug Dosing Estimated GFR (MDRD) BUN/Creatinine Ratio (No establ ref range) Glucose (70-99) mg/dL Calcium (8.5-10.1) mg/dL Total Bilirubin (0.2-1.0) mg/dL AST (15-37) U/L ALT (14-59) U/L Alkaline Phosphatase (46-116) U/L Troponin I High Sens (<=51) pg/mL B-Natriuretic Peptide (0-100) pg/ml Total Protein (6.4-8.2) g/dL Albumin (3.4-5.0) g/dL Globulin Albumin/Globulin Ratio SARS-CoV-2 RNA (JAN) Negative (NEGATIVE) Meds: Medications Discontinued Medications Generic Name Dose Route Start Last Admin Trade Name [place] PRN Reason Stop Dose Admin Furosemide 40 mg 06/07/21 00:35 06/07/21 00:48 Furosemide 40 Mg Tab PO 06/07/21 00:36 40 mg ONETIME ONE Administration Levofloxacin 500 mg 06/07/21 00:39 06/07/21 00:48 Levofloxacin 500 Mg Tab PO 06/07/21 00:40 500 mg ONETIME ONE Administration - Re-Assessments/Exams Free Text/Narrative Re-Assessment/Exam: [facility]FFER Hospitalist. Patient stable Afib, rate controlled. No acute neuro findings. Critical bed status at facility and statewide. Recommend discharge and outpatient followup with primary care. Urgent follow up if change in status Departure - Departure Time of Disposition: :39 Disposition: Home, Self-Care 01 Condition: Fair Clinical Impression: New onset a-fib CHF (congestive heart failure) Qualifiers: Heart failure type: diastolic Heart failure chronicity: acute on chronic Qualified Code(s): I50.33 - Acute on chronic diastolic (congestive) heart failure Syncope Qualifiers: Syncope type: unspecified Qualified Code(s): R55 - Syncope and collapse - Discharge Information *PRESCRIPTION DRUG MONITORING PROGRAM REVIEWED*: No *COPY OF PRESCRIPTION DRUG MONITORING REPORT IN PATIENT ROBERT: No Instructions: Atrial Fibrillation, [id number] Referrals: PCP,None [Primary Care Provider] - Forms: ED Department Discharge Additional Instructions: muccinex per label instructions to loosen mucus humidification Lasix additional 40mg at noon on Recheck clinic or Saturday with primary care provider recheck EKG and CXR sodium and potassium Levaquin 500mg one daily for one week Tessalon 100mg one every 8 hours as needed for cough Sepsis Event Note (ED) - Evaluation Sepsis Screening Result: No Definite Risk - Focused Exam Vital Signs: Vital Signs Temp Pulse Resp BP Pulse Ox 06/07/21 01:30 97.5 F 68 18 134/65 93 L 06/07/21 00:15 97.9 F 70 22 H 142/62 H 95 06/06/21 22:07 97.5 F 72 24 H 155/81 H 98
[2021-06-07] MEDS ORDERED: Furosemide 40 MG Tab PO ONE (00:35)
[2021-06-07] MEDS ORDERED: Levofloxacin 500 MG Tab PO ONE (00:39)
--- NOTE | 2021-06-07 01:02 | CT ---
PROCEDURE INFORMATION: Exam: CT Head Without Contrast Exam date and time: 06/06/2021 11:06 PM Age: 80 years old Clinical indication: Syncope and collapse TECHNIQUE: Imaging protocol: Computed tomography of the head without contrast. Radiation optimization: All CT scans at this facility use at least one of these dose optimization techniques: automated exposure control; mA and/or kV adjustment per patient size (includes targeted exams where dose is matched to clinical indication); or iterative reconstruction. COMPARISON: CT Head wo Cont 12/16/2014 3:55 PM FINDINGS: Brain: There is diffuse cerebral atrophy present, consistent with this patient's age. There is patchy low attenuation in the white matter of both cerebral hemispheres which is a nonspecific finding but most likely secondary to mild chronic microvascular ischemic disease. No evidence of acute ischemia. No intracranial hemorrhage. Cerebral ventricles: No ventriculomegaly. Paranasal sinuses: Visualized sinuses are unremarkable. No fluid levels. Mastoid air cells: Visualized mastoid air cells are well aerated. Orbital cavity: The appearance of the globes is suggestive of prior cataract surgery. Bones/joints: Unremarkable. No acute fracture. Soft tissues: Unremarkable. IMPRESSION: 1. No acute intracranial abnormality. 2. Non-acute findings are described above.
--- NOTE | 2021-06-07 01:05 | CR ---
PROCEDURE INFORMATION: Exam: XR Chest Exam date and time: 06/06/2021 11:47 PM Age: 80 years old Clinical indication: Cough TECHNIQUE: Imaging protocol: XR of the chest. Views: 1 view. COMPARISON: CR Chest 1V Frontal 07/05/2020 1:19 PM FINDINGS: Lungs: There are patchy airspace opacities in both lungs, greatest in the lower lungs. Pleural spaces: Unremarkable. No pleural effusion. No pneumothorax. Heart/Mediastinum: Unremarkable. No cardiomegaly. Bones/joints: Unremarkable. IMPRESSION: Patchy airspace opacities in both lungs, greatest in the lower lungs. Findings are nonspecific and may be secondary to multifocal pneumonia or pulmonary edema. Further assessment with CT chest may be helpful.
[2021-06-07 02:00] VITALS: BP 134/65; PULSE 68
== END 2021-06-07 01:45 | disposition home or self-care (01) ==
LOC: DL.ED 22:03
DX: R55 Syncope and collapse (principal); I11.0 Hypertensive heart disease with heart failure; I50.33 Acute on chronic diastolic (congestive) heart failure; I48.91 Unspecified atrial fibrillation; I25.10 Atherosclerotic heart disease of native coronary artery without angina pectoris; E78.00 Pure hypercholesterolemia, unspecified; K21.9 Gastro-esophageal reflux disease without esophagitis; E11.9 Type 2 diabetes mellitus without complications; E66.9 Obesity, unspecified; Z68.30 Body mass index [BMI] 30.0-30.9, adult; Z88.2 Allergy status to sulfonamides; Z88.8 Allergy status to other drugs, medicaments and biological substances; Z91.018 Allergy to other foods; Z79.899 Other long term (current) drug therapy; Z79.4 Long term (current) use of insulin; Z20.822 Contact with and (suspected) exposure to COVID-19
CPT/HCPCS: 36415; 70450; 71045; 80053; 83880; 84484; 85025; 85610; 93005; 99285-25; A9270-GY; U0002

== ENCOUNTER 2021-07-07 19:36 | Emergency (ER) | payer MEDICARE, MEDICAID ==
[2021-07-07] MEDS ORDERED: Sodium Chloride 0.9% 10 ML Syringe FLUSH PRN (20:01)
--- NOTE | 2021-07-07 20:25 | EDM.PDOC ---
ED HPI GENERAL MEDICAL PROBLEM - General Chief Complaint: Cardiovascular Problem Stated Complaint: PASSING OUT Time Seen by Provider: 07/07/21 20:19 Source of Information: Reports: Patient History Limitations: Reports: No Limitations - History of Present Illness INITIAL COMMENTS - FREE TEXT/NARRATIVE: 80 y/o F c/o passing out twice at home. She doesnt know what time she passed out but remembers she was using the toilet and urinating when she passed out the first time. Pt states her granddaughter helped her up and took her to the kitchen table where she passed out again for a few seconds. Pt states she is diabetic. She states she has CHF and has been retaining fluid around her heart lungs and legs. She denies bennett, vision prob, db, cp, abd pn, pelvic pain, increased leg swelling. The pt doesnt know what year it is or who the president is. She knows its July and that she is in [place]. Unknown pts normal mentation. - Related Data Allergies Allergy/AdvReac Type Severity Reaction Status Date / Time broccoli Allergy Rash Verified 06/06/21 22:10 calcium Allergy Cannot Verified 06/06/21 22:10 Remember fenofibrate nanocrystallized Allergy Rash Verified 06/06/21 22:10 [From Tricor] fenofibrate,micronized Allergy Rash Verified 06/06/21 22:10 [From Tricor] Penicillins Allergy Airway Verified 06/06/21 22:10 Tightness pravastatin Allergy Rash Verified 06/06/21 22:10 rosuvastatin calcium Allergy Rash Verified 06/06/21 22:10 [From Crestor] simvastatin Allergy Rash Verified 06/06/21 22:10 spinach Allergy Rash Verified 06/06/21 22:10 Home Meds: Home Meds Acetaminophen [Acetaminophen Extra Strength] 500 mg PO Q6HR PRN 10/19/13 [Histo ry] Docosahexaenoic Acid [DHA] 200 mg PO DAILY 10/19/13 [History] Fosinopril [Monopril] 20 mg PO BID 10/19/13 [History] Furosemide [Lasix] 40 mg PO DAILY 10/19/13 [History] Glucosam/Chondr/Collagn/Hyalur [Glucosamine & Chondroitin Cap] 1 cap PO DAILY 10/19/13 [History] Isosorbide Mononitrate [Isosorbide Mononitrate ER] 30 mg PO DAILY 10/19/13 [History] Latanoprost [Xalatan 0.005% Ophth Soln] 0.005 drop EYEBOTH DAILY 10/19/13 [History] Levothyroxine 175 mcg PO DAILY 10/19/13 [History] Lutein/Minerals/Vit A,C & E [I-Sofi] 1 each PO DAILY 10/19/13 [History] Potassium Chloride 10 meq PO DAILY 10/19/13 [History] Vitamin E 400 unit PO DAILY 10/19/13 [History] gemfibroziL [Lopid] 600 mg PO BID 10/19/13 [History] glipiZIDE [Glucotrol XL] 10 mg PO BID 10/19/13 [History] metFORMIN [Glucophage] 500 mg PO TIDM 10/19/13 [History] Omeprazole 20 mg PO DAILY 12/16/14 [History] Insulin Detemir [Levemir Flextouch] 16 units SQ BEDTIME 03/25/20 [History] Loratadine 10 mg PO DAILY 03/25/20 [History] Magnesium Oxide 500 mg PO BID 03/25/20 [History] Past Medical History HEENT History: Reports: Glaucoma, Other (See Below) Other HEENT History: UPPER AND LOWER DENTURES Cardiovascular History: Reports: Afib, CAD, High Cholesterol, Hypertension, Other (See Below) Other Cardiovascular History: Cardioversion. 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: , Spontaneous Musculoskeletal History: Reports: Arthritis, Back Pain, Chronic, Neck Pain, Chronic Neurological History: Reports: None Psychiatric History: Reports: None Endocrine/Metabolic History: Reports: Diabetes, Type II, Hypothyroidism, Ob esity/BMI 30+ Hematologic History: Reports: Anemia, Blood Transfusion(s), Iron Deficiency Immunologic History: Reports: None Oncologic (Cancer) History: Reports: None Dermatologic History: Reports: None - Infectious Disease History Infectious Disease History: Reports: Chicken Pox, Helicobacter Pylori, Measles, Mumps - Past Surgical History Head Surgeries/Procedures: Reports: None HEENT Surgical History: Reports: Cataract Surgery, Eye Surgery, Oral Surgery Cardiovascular Surgical History: Reports: None Respiratory Surgical History: Reports: None GI Surgical History: Reports: Colonoscopy, EGD, Other (See Below) Other GI Surgeries/Procedures: S/P ENDOSCOPIC THERAPY FOR COLONIC DIEULAFOY LESI ON Female Surgical History: Reports: None Endocrine Surgical History: Reports: Other (See Below) Other Endocrine Surgeries/Procedures: 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 Neurological Surgical History: Reports: None Musculoskeletal Surgical History: Reports: None Oncologic Surgical History: Reports: None Dermatological Surgical History: Reports: None Social & Family History - Family History Family Medical History: Unobtainable - Caffeine Use Caffeine Use: Reports: Coffee Other Caffeine Use: COFFEE REGULARLY USES BOTH CAFF & DECAF - Living Situation & Occupation Living situation: Reports: , with Family Occupation: Retired ED ROS GENERAL - Review of Systems Review Of Systems: Comprehensive ROS is negative, except as noted in HPI. ED EXAM, GENERAL - Physical Exam Exam: See Below Exam Limited By: No Limitations General Appearance: Alert, No Apparent Distress Nose: Normal Inspection, Normal Mucosa, No Blood Throat/Mouth: Other (dry oropharynx, tongue dry and furrowed) Head: Atraumatic, Normocephalic Neck: Normal Inspection, Supple, Non-Tender, Full Range of Motion Respiratory/Chest: No Respiratory Distress, No Accessory Muscle Use, Chest Non- Tender, Crackles (Crackles L lower base) Cardiovascular: Normal Peripheral Pulses, Systolic Murmur, Irregularly Irregular GI/Abdominal: Soft, Non-Tender (Female) Exam: Deferred Rectal (Female) Exam: Deferred Back Exam: Normal Inspection, Full Range of Motion Extremities: Other (4+ pedal edema. ) Neurological: Alert, Memory Loss Recent Events Psychiatric: Normal Affect, Normal Mood Skin Exam: Warm, Dry, Intact #1 Interpretation EKG Date: 07/07/21 Time: 20:02 Rhythm: A-Fib [place]: LAD-Left [place] Deviation P-Wave: Absent QRS: Other (IVCD) ST-T: Normal QT: Normal Course - Vital Signs Last Recorded V/S: Last Vital Signs Temp 96.9 F 07/07/21 20:10 Pulse 79 07/07/21 20:10 Resp 20 07/07/21 20:10 BP 136/106 H 07/07/21 20:10 Pulse Ox 92 L 07/07/21 20:10 - Orders/Labs/Meds Orders: Active Orders 24 hr Category Date Time Status Peripheral IV Care [RC] . DIRECTED Care 07/07/21 20:03 Active REFLEX LACTIC ACID YES OR NO [CHEM] Routine Lab 07/07/21 20:43 Received UA RFX NICHOLE AND CULT IF INDIC [URIN] Stat Lab 07/07/21 20:01 Ordered Sodium Chloride 0.9% [Normal Saline] 500 ml Med 07/07/21 21:30 Active IV .BOLUS Sodium Chloride 0.9% [Saline Flush] Med 07/07/21 20:01 Active 10 ml FLUSH ASDIRECTED PRN Peripheral IV Insertion Adult [OM.PC] Routine Oth 07/07/21 20:01 Ordered Medication Orders Sodium Chloride (Normal Saline) 500 mls @ 999 mls/hr IV .BOLUS SUNNY Last Admin: 07/07/21 21:30 Dose: 999 mls/hr Documented by: JC Sodium Chloride (Sodium Chloride 0.9% 10 Ml Syringe) 10 ml FLUSH ASDIRECTED PRN PRN Reason: Keep Vein Open Last Admin: 07/07/21 21:31 Dose: 10 ml Documented by: JC Labs: Laboratory Tests 07/07/21 07/07/21 07/07/21 Range/Units 20:10 20:10 20:10 WBC 5.9 (5.0-10.0) 10^3/uL RBC 3.71 L (4.2-5.4) 10^6/uL Hgb 10.9 L (12.0-16.0) g/dL Hct 34.4 L (37.0-47.0) % MCV 92.7 (80-100) fL MCH 29.4 (27.0-34.0) pg MCHC 31.7 L (33.0-35.0) g/dL Plt Count 204 (150-450) 10^3/uL Neut % (Auto) 52.2 (42.2-75.2) % Lymph % (Auto) 22.7 (20.5-50.1) % [place] % (Auto) 19.6 H (2-8) % Eos % (Auto) 3.1 H (1.0-3.0) % Baso % (Auto) 2.4 H (0.0-1.0) % Add Manual Diff Yes Neutrophils % (Manual) 50 (42-75) % Band Neutrophils % 13 % Lymphocytes % (Manual) 23 (20-50) % Atypical Lymphs % 0 % Monocytes % (Manual) 12 H (2-8) % Eosinophils % (Manual) 1 (1-3) % Basophils % (Manual) 1 Poikilocytosis 1+ slight Sodium 134 L (136-145) mmol/L Potassium 4.1 (3.5-5.1) mmol/L Chloride 96 L (98-107) mmol/L Carbon Dioxide 24 (21-32) mmol/L Anion Gap 18.1 H (7-13) mEq/L BUN 13 (7-18) mg/dL Creatinine 0.77 (0.55-1.02) mg/dL Est Cr Clr Drug Dosing 46.09 mL/min Estimated GFR (MDRD) > 60 BUN/Creatinine Ratio 16.9 (No establ ref range) Glucose 284 H (70-99) mg/dL Lactic Acid 2.2 H* (0.4-2.0) mmol/L Calcium 9.0 (8.5-10.1) mg/dL Phosphorus 3.6 (2.6-4.7) mg/dL Magnesium 1.8 (1.8-2.4) mg/dL Total Bilirubin 0.3 (0.2-1.0) mg/dL AST 17 (15-37) U/L ALT 14 (14-59) U/L Alkaline Phosphatase 95 (46-116) U/L C-Reactive Protein 0.5 (0.0-0.9) mg/dL B-Natriuretic Peptide 170 H (0-100) pg/ml Total Protein 7.8 (6.4-8.2) g/dL Albumin 3.9 (3.4-5.0) g/dL Globulin 3.9 Albumin/Globulin Ratio 1.0 TSH, Ultra Sensitive 13.42 H (0.36-3.74) uIU/mL Influenza Type A RNA (NEGATIVE) Influenza Type B RNA (NEGATIVE) SARS-CoV-2 RNA (JAN) (NEGATIVE) 07/07/21 Range/Units 20:34 WBC (5.0-10.0) 10^3/uL RBC (4.2-5.4) 10^6/uL Hgb (12.0-16.0) g/dL Hct (37.0-47.0) % MCV (80-100) fL MCH (27.0-34.0) pg MCHC (33.0-35.0) g/dL Plt Count (150-450) 10^3/uL Neut % (Auto) (42.2-75.2) % Lymph % (Auto) (20.5-50.1) % [place] % (Auto) (2-8) % Eos % (Auto) (1.0-3.0) % Baso % (Auto) (0.0-1.0) % Add Manual Diff Neutrophils % (Manual) (42-75) % Band Neutrophils % % Lymphocytes % (Manual) (20-50) % Atypical Lymphs % % Monocytes % (Manual) (2-8) % Eosinophils % (Manual) (1-3) % Basophils % (Manual) Poikilocytosis Sodium (136-145) mmol/L Potassium (3.5-5.1) mmol/L Chloride (98-107) mmol/L Carbon Dioxide (21-32) mmol/L Anion Gap (7-13) mEq/L BUN (7-18) mg/dL Creatinine (0.55-1.02) mg/dL Est Cr Clr Drug Dosing mL/min Estimated GFR (MDRD) BUN/Creatinine Ratio (No establ ref range) Glucose (70-99) mg/dL Lactic Acid (0.4-2.0) mmol/L Calcium (8.5-10.1) mg/dL Phosphorus (2.6-4.7) mg/dL Magnesium (1.8-2.4) mg/dL Total Bilirubin (0.2-1.0) mg/dL AST (15-37) U/L ALT (14-59) U/L Alkaline Phosphatase (46-116) U/L C-Reactive Protein (0.0-0.9) mg/dL B-Natriuretic Peptide (0-100) pg/ml Total Protein (6.4-8.2) g/dL Albumin (3.4-5.0) g/dL Globulin Albumin/Globulin Ratio TSH, Ultra Sensitive (0.36-3.74) uIU/mL Influenza Type A RNA Negative (NEGATIVE) Influenza Type B RNA Negative (NEGATIVE) SARS-CoV-2 RNA (JAN) Negative (NEGATIVE) Meds: Medications Generic Name Dose Route Start Last Admin Trade Name [place] PRN Reason Stop Dose Admin Sodium Chloride 500 mls @ 999 mls/hr 07/07/21 21:30 07/07/21 21:30 Normal Saline IV 999 mls/hr .BOLUS SUNNY Administration Sodium Chloride 10 ml 07/07/21 20:01 07/07/21 21:31 Sodium Chloride 0.9% 10 Ml Syringe FLUSH 10 ml ASDIRECTED PRN Administration Keep Vein Open - Re-Assessments/Exams Free Text/Narrative Re-Assessment/Exam: 07/07/21 21:52 The pt appears dehydrated. I have ordered a 500ml bolus to treat the dehydration as well as the lactic acidosis. I discussed the labs, exam, ekg, and cxr with the pt and her daughter Karen. I informed them of the improvement in the xray from the previous done 06-08. I informed them of the slight elevation in lactic acid and to hold her Metformin for two days. I believe the pts syncope was brought on by a vagal response while urinating which was compounded by the pts dehydration and possibly by her elevated TSH. I have encouraged the pt to drink enough fluids to maintain hydration. I have instructed her and her daughter to follow up in clinic next week about her ER visit, elevated TSH, Lactic acid, and pedal edema. Departure - Departure Time of Disposition: 21:59 Disposition: Home, Self-Care 01 Condition: Good Clinical Impression: Vaso vagal episode, Lactic acid acidosis, Dehydration Hypothyroidism Qualifiers: Hypothyroidism type: other Qualified Code(s): E03.8 - Other specified hypothyroidism Instructions: Dehydration, Elderly Forms: ED Department Discharge Additional Instructions: Drink enough fluids to maintain hydration. Do not take your Metformin for 2 days. Go to your primary care facility next week to follow up on your lactic acidosis, elevated TSH and edema in your legs. If any new symptoms or concerns develop contact your primary care facility or return to the ER. Sepsis Event Note (ED) - Evaluation Sepsis Screening Result: No Definite Risk - Focused Exam Vital Signs: Vital Signs Temp Pulse Resp BP Pulse Ox 07/07/21 20:10 96.9 F 79 20 136/106 H 92 L - My Orders Last 24 Hours: My Active Orders 07/07/21 20:01 UA RFX NICHOLE AND CULT IF INDIC [URIN] Stat Sodium Chloride 0.9% [Saline Flush] 10 ml FLUSH ASDIRECTED PRN Peripheral IV Insertion Adult [OM.PC] Routine 07/07/21 20:03 Peripheral IV Care [RC] . DIRECTED 07/07/21 20:43 REFLEX LACTIC ACID YES OR NO [CHEM] Routine 07/07/21 21:30 Sodium Chloride 0.9% [Normal Saline] 500 ml IV .BOLUS - Assessment/Plan Last 24 Hours: My Active Orders 07/07/21 20:01 UA RFX NICHOLE AND CULT IF INDIC [URIN] Stat Sodium Chloride 0.9% [Saline Flush] 10 ml FLUSH ASDIRECTED PRN Peripheral IV Insertion Adult [OM.PC] Routine 07/07/21 20:03 Peripheral IV Care [RC] . DIRECTED 07/07/21 20:43 REFLEX LACTIC ACID YES OR NO [CHEM] Routine 07/07/21 21:30 Sodium Chloride 0.9% [Normal Saline] 500 ml IV .BOLUS
[2021-07-07 20:31] VITALS: BP 136/106; PULSE 79
[2021-07-07 20:43] LABS: ANION GAP 18.1 mEq/L (7-13); CHLORIDE,CL 96 mmol/L (98-107); SODIUM,NA 134 mmol/L (136-145)
--- NOTE | 2021-07-07 21:01 | CR ---
PROCEDURE INFORMATION: Exam: XR Chest Exam date and time: 07/07/2021 8:37 PM Age: 80 years old Clinical indication: Other: Syncope TECHNIQUE: Imaging protocol: XR of the chest. Views: 1 view. COMPARISON: CR Chest 1V Frontal 06/06/2021 11:47 PM FINDINGS: Tubes, catheters and devices: Coil thoracic aorta. Lungs: Improvement in patchy airspace infiltrates in comparison to the prior study of 06/06/2021. Pleural spaces: Unremarkable. No pleural effusion. No pneumothorax. Heart/Mediastinum: Cardiomegaly. Bones/joints: Degenerative arthropathy both glenohumeral joints. IMPRESSION: 1. Cardiomegaly. 2. Improvement in patchy airspace infiltrates in comparison to the prior study of 06/06/2021.
[2021-07-07 21:27] LABS: CORONAVIRUS COVID-19 NAA NEGATIVE (NEGATIVE)
[2021-07-07] MEDS ORDERED: Sodium Chloride 0.9% 500 ML IV SCH (21:30)
== END 2021-07-07 22:27 | disposition home or self-care (01) ==
LOC: DL.ED 19:36
DX: R55 Syncope and collapse (principal); E11.10 Type 2 diabetes mellitus with ketoacidosis without coma; E03.8 Other specified hypothyroidism; E86.0 Dehydration; I48.91 Unspecified atrial fibrillation; E78.00 Pure hypercholesterolemia, unspecified; I10 Essential (primary) hypertension; K21.9 Gastro-esophageal reflux disease without esophagitis; E66.9 Obesity, unspecified; Z68.38 Body mass index [BMI] 38.0-38.9, adult; Z79.4 Long term (current) use of insulin; Z88.0 Allergy status to penicillin; Z88.8 Allergy status to other drugs, medicaments and biological substances; Z79.899 Other long term (current) drug therapy; Z20.822 Contact with and (suspected) exposure to COVID-19
CPT/HCPCS: 0240U; 36415; 71045; 80053; 83605; 83735; 83880; 84100; 84443; 85025; 86140; 93005; 99284; J7040

== ENCOUNTER 2021-07-19 14:33 | Emergency (ER) | payer MEDICARE, MEDICAID ==
[2021-07-19] MEDS ORDERED: Atropine 0.4 MG/ML SDV IVPUSH ONE (14:56)
[2021-07-19 15:13] VITALS: BP 137/53; PULSE 37
[2021-07-19 15:39] LABS: CHLORIDE,CL 91 mmol/L (98-107); SODIUM,NA 129 mmol/L (136-145)
[2021-07-19 16:11] LABS: CORONAVIRUS COVID-19 NAA NEGATIVE (NEGATIVE); RESPIRATORY SYNCYTIAL VIR NAA NEGATIVE (NEGATIVE)
== END 2021-07-19 18:50 ==
LOC: DL.ED 14:33
DX: R00.1 Bradycardia, unspecified (principal); I48.91 Unspecified atrial fibrillation; I25.10 Atherosclerotic heart disease of native coronary artery without angina pectoris; E78.00 Pure hypercholesterolemia, unspecified; I10 Essential (primary) hypertension; K21.9 Gastro-esophageal reflux disease without esophagitis; Z88.0 Allergy status to penicillin; Z79.899 Other long term (current) drug therapy; Z20.822 Contact with and (suspected) exposure to COVID-19
CPT/HCPCS: 0241U; 36415; 80053; 83605; 84484; 85025; 87040; 93005; 96365; 96366; 96375; 96376; 99285; J0171; J0461; J7050